=== PATIENT | female | born 1945 | race Caucasian/White ===

== ENCOUNTER 2017-11-18 08:32 | Emergency (ER) | payer MEDICARE, BC ==
[~2017-11-18] VITALS: Ht 167.6 cm; Wt 56.7 kg
[2017-11-18] MEDS ORDERED: MORPHINE SULFATE 4 MG/1 ML DISP.SYRIN ONE (08:58)
[2017-11-18] MEDS ORDERED: ONDANSETRON 4 MG/2 ML VIAL ONE (08:58)
[2017-11-18] MEDS ORDERED: ONDANSETRON 4 MG/2 ML VIAL IM ONE (09:00)
[2017-11-18] MEDS ORDERED: MORPHINE SULFATE 4 MG/1 ML DISP.SYRIN IM ONE (09:00)
--- NOTE | 2017-11-18 09:01 | NUR ---
MORPHINE AND ZOFRAN IM INJECTION ADMIN, ICE PACK TO LOWER BACK PLACED, PT POSITIONED FOR COMFORT, PT AWAITING FOR XRAYS.
--- NOTE | 2017-11-18 11:58 | NUR ---
MSE COMPLETED, PT D/C'D HOME, ACI/RX X2 GIVEN, PT AMBULATED W/O DIFF/TOOK ALL BELONGINGS, DAUGHTER TO DRIVE.
[2017-11-18 11:59] VITALS: BP 119/63
== END 2017-11-18 11:59 | disposition home or self-care (01) ==
LOC: ER 08:32
DX: S30.0XXA Contusion of lower back and pelvis, initial encounter (principal); Z91.041 Radiographic dye allergy status; W01.0XXA Fall on same level from slipping, tripping and stumbling without subsequent striking against object, initial encounter; Y93.89 Activity, other specified; Y92.89 Other specified places as the place of occurrence of the external cause; Y99.8 Other external cause status
CPT/HCPCS: 72100; 72220; 96372 ×2; 99284; A4663; J2270; J2405

== ENCOUNTER 2022-09-13 19:49 | Emergency (ER) | payer MEDICARE, BC ==
[~2022-09-13] VITALS: Ht 167.6 cm; Wt 53.5 kg
--- NOTE | 2022-09-13 19:55 | NUR ---
PT AMB TO 5B WITH C/O RE3D PAINFUL, 7, WRIST.
[2022-09-13] MEDS ORDERED: KETOROLAC TROMETHAMINE 30 MG INJ IM ONE (20:45)
[2022-09-13] MEDS ORDERED: KETOROLAC TROMETHAMINE 30 MG INJ ONE (21:03)
[2022-09-13] MEDS ORDERED: CEPH500T PO ×2 (21:24→21:27)
[2022-09-13] MEDS ORDERED: NAPR-1192 PO ×2 (21:25→21:27)
[2022-09-13] MEDS ORDERED: CEFAZOLIN 1 G VIAL IM ONE (21:30)
[2022-09-13] MEDS ORDERED: LIDOCAINE HCL 1% 20 ML VIAL ONE (21:37)
[2022-09-13] MEDS ORDERED: CEFAZOLIN 1 G VIAL ONE (21:37)
[2022-09-13 22:09] VITALS: BP 119/73
== END 2022-09-13 22:05 | disposition home or self-care (01) ==
LOC: ER 19:49
DX: M25.531 Pain in right wrist (principal); E78.5 Hyperlipidemia, unspecified; F17.210 Nicotine dependence, cigarettes, uncomplicated; Z88.2 Allergy status to sulfonamides; Z88.8 Allergy status to other drugs, medicaments and biological substances; Z79.899 Other long term (current) drug therapy
CPT/HCPCS: 99284; 73110; 96372 ×2; J0690; J1885; J3490; A4663

== ENCOUNTER 2024-09-14 10:02 | Emergency (ER) | payer BC, MEDICARE ==
[~2024-09-14] VITALS: Ht 167.6 cm; Wt 53.1 kg
[~2024-09-14 10:02] MED LIST: CEPH500T PO
[2024-09-14] MEDS ORDERED: BACITRACIN ZINC OINT 15 GM TUBE ONE (10:39)
[2024-09-14] MEDS ORDERED: CEPH500C2 PO (10:43)
[2024-09-14] MEDS: BACITRACIN ZINC OINT 15 GM TUBE TOP ONE (10:45)
[2024-09-14 10:56] VITALS: BP 118/73; TEMP 97.7; O2SAT 96
== END 2024-09-14 10:57 | disposition home or self-care (01) ==
LOC: ER 10:05
DX: S60.512A Abrasion of left hand, initial encounter (principal); F17.210 Nicotine dependence, cigarettes, uncomplicated; H40.9 Unspecified glaucoma; E78.5 Hyperlipidemia, unspecified; Z88.2 Allergy status to sulfonamides; Z88.7 Allergy status to serum and vaccine; Z91.041 Radiographic dye allergy status; X58.XXXA Exposure to other specified factors, initial encounter; Y93.89 Activity, other specified; Y92.89 Other specified places as the place of occurrence of the external cause; Y99.8 Other external cause status
CPT/HCPCS: A4606; A4663